=== PATIENT | male | born 1995 | race Caucasian/White ===

== ENCOUNTER 2018-03-17 11:53 | Emergency (ER) | payer SELFPAY ==
--- NOTE | 2018-03-17 12:38 | C.PDOC ---
History Of Present Illness 25 yo male w/PMHx of IDDM come in for evaluation of B/L wrist after had surgery week ago at [facility]. Pt sts, had B/L wrist fracture and underwent surgery to repair. Pt admits, " was unable to follow up with surgeon, canceled my appointment and my dressing is bloody". Otherwise, pt denies any new changes after surgery over the incisions, denies fever, chills, new weakness, sensory or vascular deficit. Ambulate to ED for evaluation, not in any apparent distress. Time Seen by Provider: 03/17/18 12:16 Chief Complaint (Nursing): Upper Extremity Problem/Injury History Per: Patient History/Exam Limitations: no limitations Onset/Duration Of Symptoms: Days Current Symptoms Are (Timing): Still Present Quality: "Pain" Exacerbating Factor(s): Nothing Recent travel outside of the [place]: No Additional History Per: Patient Past Medical History Reviewed: Historical Data, Nursing Documentation, Vital Signs Vital Signs: Last Vital Signs Temp 98.3 F 03/17/18 13:09 Pulse 93 H 03/17/18 13:09 Resp 16 03/17/18 13:09 BP 140/83 03/17/18 13:09 Pulse Ox 98 03/17/18 13:09 Family History: States: Unknown Family Hx - Social History Hx Alcohol Use: No Hx Substance Use: No - Immunization History Hx Tetanus Toxoid Vaccination: (Unknown) Hx Influenza Vaccination: No Hx Pneumococcal Vaccination: No Review Of Systems Except As Marked, All Systems Reviewed And Found Negative. Constitutional: Negative for: Fever, Chills Cardiovascular: Negative for: Chest Pain, Palpitations Respiratory: Negative for: Cough, Shortness of Breath Musculoskeletal: Positive for: Hand Pain (bilateral wrist) Neurological: Negative for: Weakness, Numbness Physical Exam - Physical Exam Appears: Well, Non-toxic, No Acute Distress Skin: Normal Color, Warm Extremity: Normal ROM (limited FAROM of B/L wrist s/p surgery. No neurovascular deficist distally.), Tenderness (dorsal aspect Left wrist, mild), Capillary Refill (less than 2sec to B/L hands), Swelling (diffuse dorsal aspect Left hand with mild erythema. no proximal streaking.), Other (Right volar wrist incision along wrist closed with stures, clean, dry, intact. Left volar wrist incision along wrist closed with stures, rubber drainage#3 incerted into insicion. Mild edema, no erythema, no wound discharges or odor.) Neurological/Psych: Oriented x3, Normal Speech, Normal Motor, Normal Sensation, Normal Reflexes ED Course And Treatment O2 Sat by Pulse Oximetry: 100 (RA) Pulse Ox Interpretation: Normal Progress Note: FSBS 278. On re-eval, pt is afebrile, hemodynamicaly stable. Non-toxic. hx of left radial fx s/p surgical repaired B/L wrist. B/L UEs: incision line noted over volar aspect B/l wrist, Left hadn appears lightly edematoud dorsal aspect with mild erythema, no lymphagitis. B/L incisions appears clean, dry, intact with left wrist wound rubbuer drainage. No neurovscular deficits distally, cap refill <2sec to B/L hands. ED course: B/L incisions cleaned, sterile non-adherent dressing and loose wrap applied to B/L wrists. Pt strongly advised to get immediate F/U with his hand surgeon in 1 day for re-evlauation without fail. Return to ED if any worsening or new changes. Pt was seenby ED attending , agrees with plan. return to ed ifany worsening or new changes. Disposition Counseled Patient/Family Regarding: Diagnosis, Need For Followup, Rx Given - Disposition Referrals: [facility] [Provider Group] Disposition: HOME/ ROUTINE Disposition Time: 12:43 Condition: STABLE Additional Instructions: FOLLOW UP WITH YOUR HAND SURGEON IN 1 DAY WITHOUT FAIL FOR RE-EVALUATION. TAKE ANTIBIOTIC PRESCRIBE ENCOURAGE FLUIDS, RE-CHECK BLOOD SUGAR LEVEL AT HOME AND COVER WITH INSULIN ACCORDINGLY TO SCALE FOLLOW UP WITH PMD IN 1-2 DAYS FOR RE-EVALUATION OF HYPERGLYCEMIA RETURN TO ED IF ANY WORSENING OR NEW CHANGES. 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 - Scribe Statement The provider has reviewed the documentation as recorded by the Gilmeribfatuma Garcia All medical record entries made by the Gilmeribfatuma were at my direction and personally dictated by me. I have reviewed the chart and agree that the record accurately reflects my personal performance of the history, physical exam, medical decision making, and the department course for this patient. I have also personally directed, reviewed, and agree with the discharge instructions and disposition.
[2018-03-17 13:09] VITALS: BP 140/83; PULSE 93; RESP 16; TEMP 98.3
[2018-03-17 15:36] VITALS: O2SAT 100
== END 2018-03-17 13:24 | disposition home or self-care (01) ==
LOC: C.ER 11:53
DX: T81.4XXA Infection following a procedure, initial encounter (principal); Y83.8 Other surgical procedures as the cause of abnormal reaction of the patient, or of later complication, without mention of misadventure at the time of the procedure; Z98.890 Other specified postprocedural states